=== PATIENT | female | born 2000 | race Caucasian/White ===

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

== ENCOUNTER 2018-10-02 02:35 | Outpatient (CLI) | payer OTHER ==
[2018-10-02 03:41] LABS: APPEARANCE,URINE CLEAR; BILIRUBIN,URINE NEGATIVE (NEGATIVE); COLOR,URINE YELLOW; GLUCOSE, URINE NEGATIVE (NEGATIVE); KETONES,URINE NEGATIVE (NEGATIVE); LEUKOCYTE ESTERASE,URINE TRACE (NEGATIVE); NITRITE,URINE NEGATIVE (NEGATIVE); PROTEIN,URINE NEGATIVE (NEGATIVE); URINE SPECIFIC GRAVITY 1.008; UROBILINOGEN,URINE NEGATIVE mg/dL (<2.0)
[2018-10-02 04:02] LABS: URINE AMPHETAMINES SCREEN NEGATIVE; URINE BARBITURATES SCREEN NEGATIVE; URINE BENZODIAZEPINES SCREEN NEGATIVE; URINE COCAINE SCREEN NEGATIVE; URINE MARIJUANA (THC) SCREEN NEGATIVE; URINE METHADONE SCREEN NEGATIVE; URINE PHENCYCLIDINE SCREEN NEGATIVE
[2018-10-02 04:30] LABS: ABSOLUTE EOSINOPHILS # (AUTO) 0.1 10^3/uL (0.0-0.6); ABSOLUTE LYMPHOCYTES (AUTO) 2.6 10^3/uL (0.5-4.7); ABSOLUTE MONOCYTES (AUTO) 0.8 10^3/uL (0.1-1.4); ABSOLUTE NEUT (AUTO) 7.4 10^3/uL (1.7-8.2); BASOPHILS % (AUTO) 0.3 % (0-2); EOSINOPHILS % (AUTO) 1.3 % (0-6); HEMATOCRIT 30.5 % (36.0-47.0); HEMOGLOBIN 10.5 g/dL (12.0-15.5); LYMPHOCYTES % (AUTO) 23.6 % (13-45); MEAN CORPUSCULAR HEMOGLOBIN 31.4 pg (27.0-33.4); MEAN CORPUSCULAR HGB CONC 34.5 g/dL (32.0-36.0); MEAN CORPUSCULAR VOLUME 91 fl (80-97); MONOCYTES % (AUTO) 7.5 % (3-13); PLATELET COUNT 196 10^3/uL (150-450); RED BLOOD COUNT 3.35 10^6/uL (3.72-5.28); RED CELL DISTRIBUTION WIDTH 14.5 % (11.5-14.0); SEGMENTED NEUTROPHILS % (AUTO) 67.3 % (42-78); TOTAL CELLS COUNTED % (AUTO) 100 %; WHITE BLOOD COUNT 11.1 10^3/uL (4.0-10.5)
[2018-10-02 04:48] LABS: ALANINE AMINOTRANSFERASE 18 U/L (9-52); ALBUMIN 3.8 g/dL (3.5-5.0); ALKALINE PHOSPHATASE 96 U/L (38-126); AMYLASE 59 U/L (30-110); ANION GAP 9 (5-19); ASPARTATE AMINO TRANSFERASE 17 U/L (14-36); BILIRUBIN,DIRECT 0.2 mg/dL (0.0-0.4); BILIRUBIN,TOTAL 0.4 mg/dL (0.2-1.3); BLOOD UREA NITROGEN 3 mg/dL (7-20); CALCIUM 8.9 mg/dL (8.4-10.2); CARBON DIOXIDE 22 mmol/L (22-30); CHLORIDE 109 mmol/L (98-107); GLUCOSE 100 mg/dL (75-110); LIPASE 72.6 U/L (23-300); POTASSIUM 3.1 mmol/L (3.6-5.0); SODIUM 140.2 mmol/L (137-145); TOTAL PROTEIN 6.4 g/dL (6.3-8.2)
--- NOTE | 2018-10-02 05:05 | RADIOLOGY REPORT (SQ) ---
EXAM DESCRIPTION: US LIMITED COMPLETED DATE/TIME: 10/02/2018 00:00 CLINICAL HISTORY: 18 years, Female, Cervical Length COMPARISON: None. TECHNIQUE: Transabdominal imaging of the pelvis was performed through a gravid uterus to evaluate the cervical length. FINDINGS: Transabdominal sonographic imaging of the pelvis was performed through the gravid uterus and reveals a single living intrauterine in cephalic presentation with a heart rate of 155 bpm. The placenta is anterior in location. The cervical length measures 3.1 cm. IMPRESSION: Cervical length measures 3.1 cm at this time.
== END 2018-10-02 05:40 | disposition home or self-care (01) ==
LOC: LC 02:35
PROVIDERS: ATTEND Obstetrics & Gynecology
PROC: 4A1HXCZ Monitoring of Products of Conception, Cardiac Rate, External Approach (ICD-10-PCS; principal; 2018-10-02)
DX: O47.03 False labor before 37 completed weeks of gestation, third trimester (principal); Z3A.33 33 weeks gestation of pregnancy
CPT/HCPCS: 36415; 59025; 76815; 80053; 80307; 81001; 82150; 83690; 85025

== ENCOUNTER 2020-04-09 19:37 | Emergency (ER) | payer OTHER ==
[2020-04-09 20:57] LABS: ABSOLUTE EOSINOPHILS # (AUTO) 0.1 10^3/uL (0.0-0.6); ABSOLUTE MONOCYTES (AUTO) 0.8 10^3/uL (0.1-1.4); ABSOLUTE NEUT (AUTO) 7.9 10^3/uL (1.7-8.2); BASOPHILS % (AUTO) 0.4 % (0-2); HEMATOCRIT 39.1 % (36.0-47.0); HEMOGLOBIN 13.2 g/dL (12.0-15.5); LYMPHOCYTES % (AUTO) 25.3 % (13-45); MEAN CORPUSCULAR HEMOGLOBIN 29.7 pg (27.0-33.4); MEAN CORPUSCULAR HGB CONC 33.8 g/dL (32.0-36.0); MEAN CORPUSCULAR VOLUME 88 fl (80-97); MONOCYTES % (AUTO) 6.9 % (3-13); PLATELET COUNT 256 10^3/uL (150-450); RED BLOOD COUNT 4.45 10^6/uL (3.72-5.28); RED CELL DISTRIBUTION WIDTH 14.4 % (11.5-14.0); SEGMENTED NEUTROPHILS % (AUTO) 66.4 % (42-78); TOTAL CELLS COUNTED % (AUTO) 100 %; WHITE BLOOD COUNT 11.8 10^3/uL (4.0-10.5)
[2020-04-09 20:59] LABS: APPEARANCE,URINE SLIGHTLY-CLOUDY; BILIRUBIN,URINE NEGATIVE (NEGATIVE); COLOR,URINE YELLOW; GLUCOSE, URINE NEGATIVE (NEGATIVE); KETONES,URINE NEGATIVE (NEGATIVE); LEUKOCYTE ESTERASE,URINE SMALL (NEGATIVE); NITRITE,URINE NEGATIVE (NEGATIVE); PROTEIN,URINE NEGATIVE (NEGATIVE); URINE SPECIFIC GRAVITY 1.013; UROBILINOGEN,URINE NEGATIVE mg/dL (<2.0)
--- NOTE | 2020-04-09 21:05 | ER Document Report ---
ED General - General Chief Complaint: Abdominal Pain Stated Complaint: VOMITING,NAUSEA,FEVER Time Seen by Provider: 04/09/20 20:57 [facility] - Follow up in 3-5 days Notes: Patient is a 19-year-old female that comes to the emergency department for chief complaint of sick symptoms including fever, chills, diarrhea after eating, nausea, and lower abdominal pain on both sides. Symptoms have been present for about 4 to 5 days. Patient is also 4 weeks based on her last menstrual period and positive home test today. She denies vaginal bleeding, vaginal discharge, flank pain, concerns for STD. She denies any abdominal surgeries. She denies any obvious sick contacts. She denies any other symptoms including chest pain, cough, sore throat, congestion. TRAVEL OUTSIDE OF THE [place] IN LAST 30 DAYS: No - Related Data Allergies/Adverse Reactions: No Known Allergies Allergy (Verified 04/09/20 20:42) Past Medical History - General Information source: Patient - Social History Smoking Status: Never Smoker Frequency of alcohol use: None Drug Abuse: None Lives with: Family Family History: Reviewed & Not Pertinent Patient has homicidal ideation: No Renal/ Medical History: Denies: Hx Peritoneal Dialysis Surgical Hx: Negative - Immunizations Immunizations up to date: Yes Hx Diphtheria, Pertussis, Tetanus Vaccination: Yes Review of Systems - Review of Systems Constitutional: See HPI EENT: No symptoms reported Cardiovascular: No symptoms reported Respiratory: No symptoms reported Gastrointestinal: See HPI Genitourinary: See HPI Female Genitourinary: See HPI Musculoskeletal: No symptoms reported Skin: No symptoms reported Hematologic/Lymphatic: No symptoms reported Neurological/Psychological: No symptoms reported Physical Exam - Vital signs Vitals: Temp Pulse Resp BP Pulse Ox 98.9 F 106 H 18 118/59 L 100 04/09/20 20:20 04/09/20 20:20 04/09/20 20:20 04/09/20 20:20 04/09/20 20:20 - Notes Notes: GENERAL: Alert, interacts well. No acute distress. HEAD: Normocephalic, atraumatic. EYES: Pupils equal, round, and reactive to light. Extraocular movements intact. ENT: Oral mucosa dry, tongue midline. Oropharynx unremarkable. Airway patent. NECK: Full range of motion. Supple. Trachea midline. No lymphadenopathy. LUNGS: Clear to auscultation bilaterally, no wheezes, rales, or rhonchi. No respiratory distress. Non-tender chest wall. HEART: Regular rate and rhythm. No murmur ABDOMEN: There is tenderness over the bilateral lower abdominal/pelvic area with wincing. Mid to upper abdomen is completely unremarkable. Bowel sounds present, no distention GENITOURINARY: External exam unremarkable, speculum exam shows moderate amount of whitish vaginal discharge. No CMT noted. No bleeding or concerning findings otherwise. [facility]. EXTREMITIES: Moves all 4 extremities spontaneously. No edema, normal radial and dorsalis pedis pulses bilaterally. No cyanosis. BACK: no cervical, thoracic, lumbar midline tenderness. No saddle anesthesia, normal distal neurovascular exam. Moves all extremities in full range of motion. NEUROLOGICAL: Alert and oriented x3. Normal speech. Cranial nerves II through XII grossly intact. Strength 5/5 in all extremities. PSYCH: Normal affect, normal mood. SKIN: Warm, dry, normal turgor. No rashes or lesions noted. Course - Re-evaluation Re-evalutation: Patient is well appearing but does have reported fevers and lower abdominal/pelvic tenderness on exam. Patient given IVF, mild tachycardia resolved afterwards. Mild leukocytosis noted on CBC, chemistry unremarkable, urine non-specific. Pelvic exam shows discharge but no overt CMT. 3+ WBCs on wet mount, negative pelvic swabs otherwise. Ultrasound with no acute findings, hCG resulted and quant is only 18 at this time. Patient is not bleeding and has not had any bleeding. There is no blood on exam or wet mount. Overall clinical picture is most consistent with a pelvic infection, she was treated for this, she will also be tested for COVID-19 after discussion because of her variety of symptoms and reported fevers over the past few days. She does not have a fever here. I discussed testing, treatment, follow-up, and return precautions at length. Patient states understanding and agreement. Patient stable and well- appearing at time of discharge. - Vital Signs Vital signs: Temp Pulse Resp BP Pulse Ox 99.1 F 79 20 107/69 100 04/10/20 00:03 04/10/20 00:03 04/10/20 00:03 04/10/20 00:03 04/10/20 00:03 - Laboratory Result Diagrams: 04/09/20 20:47 04/09/20 20:47 Laboratory results interpreted by me: 04/09/20 04/09/20 04/09/20 20:47 20:47 20:47 WBC 11.8 H RDW 14.4 H Potassium 3.4 L Beta HCG, Quant Urine Blood SMALL H Ur Leukocyte Esterase SMALL H 04/09/20 20:47 WBC RDW Potassium Beta HCG, Quant 18.10 H Urine Blood Ur Leukocyte Esterase Discharge - Discharge Clinical Impression: Lower abdominal pain, Chills, Nausea vomiting and diarrhea Condition: Stable Disposition: HOME, SELF-CARE Additional Instructions: You are being treated for pelvic infection, your symptoms did significantly improve and then resolved. You also may have a viral illness based on your symptoms, you have been tested for COVID-19, you will be contacted with the results. The is very early based on tests, this is too early to see on the ultrasound. Ultrasound does not show any concerning findings. You can take Reglan if needed for nausea, Tylenol if needed for pain, drink plenty of fluids and rest. Follow-up with primary care, call the listed referral, see additional instructions listed below. Return for any concerning symptoms including severe worsening pain, difficulty breathing, or any other concerning or worsening symptoms. As a person under investigation for COVID-19, the [place] Department of Health and Human Services (division on public health) advises you to adhere to the following guidance until your test results are reported to you. If your test result is positive, you will receive additional information from your provider and your local health department at that time. Remain at home until you are cleared by the health provider or public health authorities. Keep a log of visitors to your home, notify any visitors to your home of your isolation status. If you plan to move to a new address or leave the county, notify the local health department in your County. Call your Doctor or seek care if you have an urgent medical need. Before seeking medical care, call him to get instructions from the provider before arriving at the medical office, clinic, or hospital. Notify them that you are being tested for the virus (COVID-19) so that arrangements can be made, as necessary, to prevent transmission to others in the healthcare setting. Next, notify the local health department in your county. If a medical emergency arises and you need to call 911, inform the first respon ders that you are being tested for the virus that causes COVID-19. Next, notify the local health department in your county. Prescriptions: Metoclopramide HCl [Reglan] 5 mg PO ASDIR PRN #30 tablet PRN Reason: Forms: Return to Work Referrals: [facility] [NO LOCAL MD] - Follow up in 3-5 days
[2020-04-09 21:13] LABS: ALBUMIN 4.9 g/dL (3.5-5.0); ALKALINE PHOSPHATASE 65 U/L (38-126); ANION GAP 8 (5-19); ASPARTATE AMINO TRANSFERASE 23 U/L (14-36); BILIRUBIN,TOTAL 0.3 mg/dL (0.2-1.3); BLOOD UREA NITROGEN 10 mg/dL (7-20); CALCIUM 9.9 mg/dL (8.4-10.2); CARBON DIOXIDE 27 mmol/L (22-30); CHLORIDE 105 mmol/L (98-107); GLUCOSE 94 mg/dL (75-110); POTASSIUM 3.4 mmol/L (3.6-5.0); TOTAL PROTEIN 8.2 g/dL (6.3-8.2)
[2020-04-09 21:59] LABS: RBCS (WET MOUNT) NO RBCS SEEN; T.VAGINALIS (WET MOUNT) NO TRICHOMONAS SEEN; WBCS (WET MOUNT) 3+ WBCS SEEN; YEAST (WET MOUNT) NO YEAST SEEN
--- NOTE | 2020-04-09 23:16 | RADIOLOGY REPORT (SQ) ---
EXAM: First trimester OB ultrasound. CLINICAL INDICATION: Sharp pelvic pain. COMPARISON: None. TECHNIQUE: First trimester OB ultrasound was performed. FINDINGS: Uterus: The uterus measures 9.1 x 4.2 cm x 4.3 cm. The cervix is closed and measures 3.1 cm. Endometrium is 10 mm. No gestational sac. Ovaries and adnexa: The right ovary measures 2.5 x 1.5 x 1.5 cm and has normal blood flow. The left ovary measures 4.3 x 1.9 x 2.2 cm with normal blood flow. No adnexal mass. No free fluid. IMPRESSION: Unremarkable pelvic ultrasound. No gestational sac is identified. Viability is indeterminate.
[2020-04-09 23:27] LABS: CHLAM PCR NOT DETECTED (NOT DETECT)
[2020-04-09] MEDS ORDERED: CEFTRIAXONE INJ 250 MG VIAL IM ONE (23:49)
[2020-04-09] MEDS ORDERED: AZITHROMYCIN 250 MG TABLET PO ONE (23:49)
[2020-04-09] MEDS ORDERED: LIDOCAINE 1% INJ-PF (10 MG/ML) 30 ML SDV INJ ONE (23:49)
[2020-04-10 00:26] VITALS: BP 107/69
== END 2020-04-10 00:26 | disposition home or self-care (01) ==
LOC: ER 19:37
DX: O21.9 Vomiting of pregnancy, unspecified (principal); O26.891 Other specified pregnancy related conditions, first trimester; R10.9 Unspecified abdominal pain; R50.9 Fever, unspecified; Z3A.01 Less than 8 weeks gestation of pregnancy; Z20.828 Contact with and (suspected) exposure to other viral communicable diseases
CPT/HCPCS: 99284; 96372; 36415; 87210; 84702; 85025; 87635; 80053; 81001; 87491; 87591; 76801; 93976; J3490; J0696; C9803

== ENCOUNTER 2020-06-23 13:39 | Emergency (ER) | payer OTHER ==
[2020-06-23 13:51] VITALS: BP 133/74
[2020-06-23] MEDS ORDERED: ACETAMINOPHEN 325 MG TABLET PO ONE (14:01)
--- NOTE | 2020-06-23 15:48 | RADIOLOGY REPORT (SQ) ---
EXAM DESCRIPTION: HAND RIGHT 3 VIEWS IMAGES COMPLETED DATE/TIME: 06/23/2020 2:01 pm REASON FOR STUDY: injury. Smashed hand with box, pain at the 5th metacarpal. COMPARISON: None. EXAM PARAMETERS: NUMBER OF VIEWS: Three views. TECHNIQUE: AP, lateral and oblique radiographic images acquired of the right hand. LIMITATIONS: None. FINDINGS: MINERALIZATION: Normal. BONES: No acute fracture or dislocation. No worrisome bone lesions. JOINTS: No effusions. SOFT TISSUES: No soft tissue swelling. No foreign body. OTHER: No other significant finding. IMPRESSION: NEGATIVE STUDY OF THE RIGHT HAND. NO RADIOGRAPHIC EVIDENCE OF ACUTE INJURY. TECHNICAL DOCUMENTATION: JOB ID: [id number] 2010 [employer]- All Rights Reserved Reading location - IP/workstation name: [email or web address]
--- NOTE | 2020-06-23 15:52 | ER Document Report ---
HPI - HPI Patient complains to provider of: right hand injury Time Seen by Provider: 06/23/20 13:58 Pain Level: 4 Context: 19-year-old 15-week female presents to the emergency room complaining of right lateral hand pain patient states she was moving boxes as she was packing when she smashed her hand between 2 boxes. Happened just prior to arrival. Did not take any medications for symptoms. Patient is right-handed. Associated Symptoms: None Exacerbated by: Movement Relieved by: Remaining still Similar symptoms previously: No Recently seen / treated by doctor: No - ROS Systems Reviewed and Negative: Yes All other systems reviewed and negative - CONSTITUTIONAL Constitutional: DENIES: Fever, Chills - REPRODUCTIVE Reproductive: REPORTS: : - MUSCULOSKELETAL Musculoskeletal: REPORTS: Extremity pain - right hand Past Medical History - General Information source: Patient - Social History Smoking Status: Never Smoker Chew tobacco use (# tins/day): No Frequency of alcohol use: None Drug Abuse: None Family History: Reviewed & Not Pertinent Renal/ Medical History: Denies: Hx Peritoneal Dialysis - Immunizations Immunizations up to date: Yes Hx Diphtheria, Pertussis, Tetanus Vaccination: Yes Vertical Provider Document - CONSTITUTIONAL Agree With Documented VS: Yes Exam Limitations: No Limitations General Appearance: Mild Distress - INFECTION CONTROL TRAVEL OUTSIDE OF THE [place] IN LAST 30 DAYS: No - HEENT HEENT: Atraumatic, Normocephalic - NECK Neck: Normal Inspection, Supple - RESPIRATORY Respiratory: Breath Sounds Normal, No Respiratory Distress - CARDIOVASCULAR Cardiovascular: Regular Rate, Regular Rhythm, No Murmur - MUSCULOSKELETAL/EXTREMETIES Musculoskeletal/Extremeties: Tender - Tenderness and swelling noted to the lateral aspect of the right hand. There is no obvious deformity noted. Full range of motion with flexion extension to all the digits of her right hand. Her front end mechanic strength is equal and adequate bilaterally. - NEURO Level of Consciousness: Awake, Alert, Appropriate Motor/Sensory: No Motor Deficit, No Sensory Deficit Notes: Positive left radial pulse. Capillary refill less than 3 seconds. Neurovascular intact. Course - Re-evaluation Re-evalutation: 06/23/20 14:00 Patient was counseled on the risks of radiation to her unborn child and is agreeable to have x-ray knowing that she is with the risks of radiation to the fetus. 06/23/20 15:50 Patient is resting comfortably no acute distress at this time. Reviewed negative x-ray results with patient. Counseled that she can take Tylenol as needed for pain not to exceed 8 in 24 hours. Ice 20 minutes 3 times a day. Outpatient follow-up with orthopedics if not improving in 2 to 3 days. On-call physician was provided. Patient was given strict return to the emergency room guidelines. Return for any new or worsening symptoms. All questions were answered. Patient verbalized understanding and agrees with plan of care. 06/23/20 15:56 - Vital Signs Vital signs: Temp Pulse Resp BP Pulse Ox 98.3 F 92 16 133/74 H 97 06/23/20 13:49 06/23/20 13:49 06/23/20 13:49 06/23/20 13:49 06/23/20 13:49 - Diagnostic Test Radiology reviewed: Reports reviewed Discharge - Discharge Clinical Impression: Contusion of right hand Qualifiers: Encounter type: initial encounter Qualified Code(s): S60.221A - Contusion of right hand, initial encounter Condition: Stable Disposition: HOME, SELF-CARE Instructions: Contusion ([facility]) Additional Instructions: Can use ice 20 minutes 3 times a day. Tylenol as needed for pain not to exceed 8 in 24 hours. Outpatient follow-up with orthopedics as needed. Return to emergency room for any new or worsening symptoms. Referrals: ABA SALMON MD [ACTIVE STAFF] - Follow up as needed
== END 2020-06-23 16:00 | disposition home or self-care (01) ==
LOC: ER 13:39
DX: O9A.212 Injury, poisoning and certain other consequences of external causes complicating pregnancy, second trimester (principal); S60.221A Contusion of right hand, initial encounter; W23.0XXA Caught, crushed, jammed, or pinched between moving objects, initial encounter; Y93.89 Activity, other specified; Z3A.15 15 weeks gestation of pregnancy
CPT/HCPCS: 99283